=== PATIENT | male | born 1955 | race Caucasian/White ===

== ENCOUNTER 2019-08-21 16:49 | Inpatient (IN) ==
[2019-08-21 17:58] LABS: ABS Basophils 0.1 10^3/ul (0-0.2); ABS Eosinophils 0.2 10^3/ul (0-0.6); ABS Lymphocytes 1.3 10^3/ul (1.0-4.8); ABS Monocytes 0.6 10^3/ul (0-0.8); ABS Neutrophils 6.2 10^3/ul (1.5-7.7); Eosinophil % 1.9 %; Hematocrit 41 % (42-52); Hemoglobin 13.6 g/dL (14.0-18.0); Lymphocyte % 15.4 %; Mean Corpuscular HGB Conc 34 g/dL (31-36); Mean Corpuscular Hemoglobin 27 pg (27-31); Mean Corpuscular Volume 82 fL (80-94); Mean Platelet Volume 8.9 fL (7.4-10.4); Platelet Count 239 10^3/uL (150-450); Red Blood Count 4.96 10^6 /uL (4.18-5.48); Red Cell Distribution Width 15 % (10-15); White Blood Count 8.3 10^3/uL (3.5-10.8)
[2019-08-21 18:14] LABS: ALT 20 U/L (7-52); AST 59 U/L (13-39); Albumin 4.4 g/dL (3.2-5.2); Albumin/Globulin Ratio 1.6 (1-3); Alkaline Phosphatase 73 U/L (34-104); Anion Gap 8 mmol/L (2-11); BUN/Creatinine Ratio 18.8 (8-20); Blood Urea Nitrogen 24 mg/dL (6-24); CO2 Carbon Dioxide 28 mmol/L (22-32); Calcium 9.8 mg/dL (8.6-10.3); Chloride 102 mmol/L (101-111); EGFR African American 68.2 (>60); EGFR Non-African American 56.4 (>60); Globulin 2.8 g/dL (2-4); Glucose 111 mg/dL (70-100); Magnesium 2.1 mg/dL (1.9-2.7); Potassium 3.4 mmol/L (3.5-5.0); Sodium 138 mmol/L (135-145); Total Protein 7.2 g/dL (6.4-8.9)
[2019-08-21 18:17] LABS: Troponin I 0.05 ng/mL (<0.03)
[2019-08-21 19:20] LABS: Activated Partial Thrombo Time 29.7 seconds (26.0-38.0); INR 1.17 (0.82-1.09)
[2019-08-21] MEDS ORDERED: Ondansetron 4 mg VIAL 2 MG/ML 2 ml VIAL IV PRN (19:59)
[2019-08-21] MEDS ORDERED: KCL 20 MEQ/100 ML IVPREMIX 20 MEQ/100 ML BAG IV ONE (20:07)
[2019-08-21] MEDS ORDERED: Iodixanol (CONTRAST) 320 MG/ML 100 ML SDV IV ONE (20:29)
[2019-08-21] MEDS ORDERED: Thiamine 100 MG/ML 2 ml VIAL (200 mg) IM ONE (20:30)
[2019-08-21] MEDS ORDERED: LORazepam 2 mg VIAL 1 ml IV PUSH SCH (21:00)
[2019-08-21 21:29] LABS: Troponin I 0.06 ng/mL (<0.03)
[2019-08-21] MEDS: NS 0.9% 1000 ml BAG 1,000 ML IV SCH (22:31)
[2019-08-21] MEDS: Enoxaparin 40 MG/0.4 ML SYR SUBCUT SCH (22:32)
[2019-08-21] MEDS: Pantoprazole VIAL 40 MG VIAL IV SCH (22:32)
[2019-08-22 00:37] LABS: Troponin I 0.06 ng/mL (<0.03)
[2019-08-22 03:31] LABS: BUN/Creatinine Ratio 20.7 (8-20); EGFR African American 76.5 (>60); EGFR Non-African American 63.2 (>60); Potassium 3.7 mmol/L (3.5-5.0)
[2019-08-22 03:57] LABS: Troponin I 0.06 ng/mL (<0.03)
[2019-08-22] MEDS: NS 0.9% 1000 ml BAG 1,000 ML IV SCH ×2 (08:23→22:34)
[2019-08-22] MEDS: Pantoprazole VIAL 40 MG VIAL IV SCH ×2 (08:24→21:45)
[2019-08-22] MEDS ORDERED: Pneumococcal Vac 23-Polyvalent IM ONE (09:00)
[2019-08-22] MEDS ORDERED: fentaNYL 100 mcg/2 ml 50 MCG/ML VIAL ONE (15:09)
[2019-08-22] MEDS ORDERED: Midazolam 10 mg/10 ml VIAL 1 mg/ml 10 ml VIAL (10 mg) ONE (15:09)
[2019-08-22] MEDS ORDERED: Iohexol 300 (CONTRAST) 10 ML SDV IV ONE (20:42)
[2019-08-22] MEDS: Enoxaparin 40 MG/0.4 ML SYR SUBCUT SCH (21:45)
[2019-08-23] MEDS: NS 0.9% 1000 ml BAG 1,000 ML IV SCH ×2 (01:20→22:05)
[2019-08-23] MEDS: Pantoprazole VIAL 40 MG VIAL IV SCH ×2 (08:03→20:55)
[2019-08-23] MEDS ORDERED: Magnesium Hydroxide LIQ 30 ML UDC PO PRN (08:32)
[2019-08-23] MEDS ORDERED: Polyethylene Glycol 3350 17 GM PACKET PO PRN (08:32)
[2019-08-23] MEDS ORDERED: Magnesium Hydroxide LIQ 30 ML UDC PO SCH (09:00)
[2019-08-23] MEDS ORDERED: HYDROcodone/ACET. 7.5/325 LIQ 15 ML UDC PO ONE (19:18)
[2019-08-24] MEDS ORDERED: Bupivacaine 0.25% SDV PF 10 ML VIAL INJ ONE ×3 (07:39→08:58)
[2019-08-24] MEDS ORDERED: fentaNYL 250 mcg/5 ml 50 MCG/ML 5 ml VIAL (250 MCG) ONE (07:40)
[2019-08-24] MEDS ORDERED: Midazolam 2 mg/2 ml VIAL 1 mg/ml 2 ml VIAL (2 mg) ONE (07:40)
[2019-08-24] MEDS ORDERED: fentaNYL 100 mcg/2 ml 50 MCG/ML VIAL ONE (07:41)
[2019-08-24] MEDS ORDERED: Flumazenil 0.5 mg/5 ml 0.1 MG/ML 5 ml VIAL ONE (07:41)
[2019-08-24] MEDS ORDERED: Naloxone 0.4 mg VIAL 0.4 mg/ml 1 ml VIAL ONE (07:41)
[2019-08-24] MEDS ORDERED: ceFAZolin 1 GM* X ONE DOSE (AddVan) IVPB (08:00)
[2019-08-24] MEDS ORDERED: Lidocaine 2% JELLY 6 ML TOPICAL ONE (08:13)
[2019-08-24] MEDS ORDERED: Ondansetron 4 mg VIAL 2 MG/ML 2 ml VIAL IV PRN (10:14)
[2019-08-24] MEDS: Pantoprazole VIAL 40 MG VIAL IV SCH ×2 (10:22→20:48)
[2019-08-24] MEDS ORDERED: oxyCODONE/Acetamin 5/325 mg TAB PO PRN (14:53)
[2019-08-25 06:21] LABS: BUN/Creatinine Ratio 14.4 (8-20); Calcium 8.8 mg/dL (8.6-10.3); EGFR African American 86.7 (>60); EGFR Non-African American 71.7 (>60); Magnesium 2.1 mg/dL (1.9-2.7)
[2019-08-25 06:29] LABS: ABS Eosinophils 0.3 10^3/ul (0-0.6); ABS Lymphocytes 1.5 10^3/ul (1.0-4.8); ABS Monocytes 0.8 10^3/ul (0-0.8); ABS Neutrophils 6.1 10^3/ul (1.5-7.7); Eosinophil % 3.3 %; Hematocrit 39 % (42-52); Lymphocyte % 17.4 %; Mean Corpuscular HGB Conc 33 g/dL (31-36); Mean Corpuscular Hemoglobin 28 pg (27-31); Mean Corpuscular Volume 82 fL (80-94); Nucleated Red Blood Cells % 0.1; Red Blood Count 4.74 10^6 /uL (4.18-5.48); Red Cell Distribution Width 15 % (10-15); White Blood Count 8.8 10^3/uL (3.5-10.8)
[2019-08-25 09:04] LABS: Mean Platelet Volume 9.9 fL (7.4-10.4); Platelet Count 164 10^3/uL (150-450)
[2019-08-25] MEDS: Pantoprazole VIAL 40 MG VIAL IV SCH (10:01)
[2019-08-25] MEDS ORDERED: Enoxaparin 40 MG/0.4 ML SYR SUBCUT SCH (14:00)
[2019-08-25 15:18] VITALS: BP 123/66
== END 2019-08-25 16:45 | disposition home or self-care (01) | DRG 376 ==
LOC: ED 16:49 → MEDTELE 16:49
PROVIDERS: ADMIT Nurse Practitioner Adult Health; ATTEND Internal Medicine

== ENCOUNTER 2020-01-05 08:07 | Inpatient (IN) ==
[2020-01-05 08:55] LABS: ABS Basophils 0.1 10^3/ul (0-0.2); ABS Eosinophils 0.4 10^3/ul (0-0.6); ABS Lymphocytes 0.3 10^3/ul (1.0-4.8); ABS Monocytes 1.1 10^3/ul (0-0.8); ABS Neutrophils 6.7 10^3/ul (1.5-7.7); Eosinophil % 4.4 %; Hematocrit 31 % (42-52); Hemoglobin 10.7 g/dL (14.0-18.0); Lymphocyte % 3.7 %; Mean Corpuscular HGB Conc 35 g/dL (31-36); Mean Corpuscular Hemoglobin 31 pg (27-31); Mean Corpuscular Volume 89 fL (80-94); Mean Platelet Volume 7.3 fL (7.4-10.4); Nucleated Red Blood Cells % 0.1; Platelet Count 322 10^3/uL (150-450); Red Blood Count 3.45 10^6 /uL (4.18-5.48); Red Cell Distribution Width 14 % (10-15); White Blood Count 8.5 10^3/uL (3.5-10.8)
[2020-01-05 09:14] LABS: Activated Partial Thrombo Time 28.1 seconds (26.0-38.0); Albumin 3.7 g/dL (3.2-5.2); Albumin/Globulin Ratio 1.2 (1-3); BUN/Creatinine Ratio 23.4 (8-20); C Reactive Protein 133.9 mg/L (<8.01); Calcium 9.2 mg/dL (8.6-10.3); EGFR African American 68.2 (>60); EGFR Non-African American 56.4 (>60); Globulin 3.2 g/dL (2-4); INR 1.29 (0.82-1.09); Potassium 3.9 mmol/L (3.5-5.0); Total Bilirubin 0.5 mg/dL (0.2-1.0); Total Protein 6.9 g/dL (6.4-8.9)
[2020-01-05 09:16] LABS: Troponin I 0.02 ng/mL (<0.03)
[2020-01-05 09:18] LABS: CKMB ng/mL 0.8 ng/mL (0.6-6.3)
[2020-01-05 09:49] LABS: Influenza A Molecular Negative (Negative); Influenza B Molecular Negative (Negative)
[2020-01-05] MEDS ORDERED: Iodixanol (CONTRAST) 320 MG/ML 100 ML SDV IV ONE (11:47)
[2020-01-05] MEDS ORDERED: Dexamethasone IV 4 MG/ML VIAL 1 ml VIAL IV SLOW PU ONE (12:42)
[2020-01-05] MEDS ORDERED: cefTRIAXone 2 GM ADDV.VIAL ONE (14:46)
[2020-01-05] MEDS: NS 0.9% 1000 ml BAG 1,000 ML IV SCH ×2 (14:53→16:56)
[2020-01-05] MEDS: cefTRIAXone 2 GM ADDV.VIAL 2 GM in NS 0.9% 100 ml BAG 100 ML IV SCH (14:54)
[2020-01-05] MEDS: Enoxaparin 40 MG/0.4 ML SYR SUBCUT SCH (17:16)
[2020-01-05 22:22] LABS: Urine Appearance Clear; Urine Bilirubin Negative (Negative); Urine Blood Negative (Negative); Urine Color Yellow; Urine Glucose Negative (Negative); Urine Ketones Negative (Negative); Urine Nitrite Negative (Negative); Urine Protein Negative (Negative); Urine Specific Gravity 1.025 (1.010-1.030); Urine Urobilinogen Negative (Negative)
[2020-01-06] MEDS: Ondansetron 4 mg VIAL 2 MG/ML 2 ml VIAL IV PRN ×2 (01:14→19:24)
[2020-01-06] MEDS: NS 0.9% 1000 ml BAG 1,000 ML IV SCH (03:48)
[2020-01-06 06:50] LABS: Hematocrit 29 % (42-52); Hemoglobin 10.2 g/dL (14.0-18.0); Mean Corpuscular HGB Conc 36 g/dL (31-36); Mean Corpuscular Hemoglobin 32 pg (27-31); Mean Corpuscular Volume 89 fL (80-94); Mean Platelet Volume 7.2 fL (7.4-10.4); Platelet Count 308 10^3/uL (150-450); Red Blood Count 3.21 10^6 /uL (4.18-5.48); Red Cell Distribution Width 14 % (10-15); White Blood Count 7.4 10^3/uL (3.5-10.8)
[2020-01-06 07:10] LABS: Albumin 3.4 g/dL (3.2-5.2); Albumin/Globulin Ratio 1.2 (1-3); BUN/Creatinine Ratio 26.7 (8-20); Calcium 8.8 mg/dL (8.6-10.3); EGFR African American 89.7 (>60); EGFR Non-African American 74.1 (>60); Globulin 2.9 g/dL (2-4); Magnesium 2.1 mg/dL (1.9-2.7); Potassium 4.2 mmol/L (3.5-5.0); Total Bilirubin 0.3 mg/dL (0.2-1.0); Total Protein 6.3 g/dL (6.4-8.9)
[2020-01-06] MEDS: cefTRIAXone 2 GM ADDV.VIAL 2 GM in NS 0.9% 100 ml BAG 100 ML IV SCH (15:33)
[2020-01-06] MEDS: Enoxaparin 40 MG/0.4 ML SYR SUBCUT SCH (17:00)
[2020-01-07] MEDS: Ondansetron 4 mg VIAL 2 MG/ML 2 ml VIAL IV PRN ×4 (07:36→21:26)
[2020-01-07] MEDS: cefTRIAXone 2 GM ADDV.VIAL 2 GM in NS 0.9% 100 ml BAG 100 ML IV SCH (15:40)
[2020-01-07] MEDS: Enoxaparin 40 MG/0.4 ML SYR SUBCUT SCH (15:41)
[2020-01-08] MEDS: Senna TAB 8.6 mg TAB PO PRN (07:49)
[2020-01-08 08:21] LABS: ABS Eosinophils 0.4 10^3/ul (0-0.6); ABS Lymphocytes 0.3 10^3/ul (1.0-4.8); ABS Monocytes 0.9 10^3/ul (0-0.8); Eosinophil % 5.5 %; Hematocrit 29 % (42-52); Hemoglobin 10.3 g/dL (14.0-18.0); Lymphocyte % 4.5 %; Mean Corpuscular HGB Conc 36 g/dL (31-36); Mean Corpuscular Hemoglobin 32 pg (27-31); Mean Corpuscular Volume 89 fL (80-94); Mean Platelet Volume 7.1 fL (7.4-10.4); Platelet Count 357 10^3/uL (150-450); Red Blood Count 3.27 10^6 /uL (4.18-5.48); Red Cell Distribution Width 14 % (10-15); White Blood Count 7.7 10^3/uL (3.5-10.8)
[2020-01-08 08:27] LABS: Albumin 3.5 g/dL (3.2-5.2); Albumin/Globulin Ratio 1.1 (1-3); BUN/Creatinine Ratio 19.5 (8-20); C Reactive Protein 118.31 mg/L (<8.01); Calcium 8.8 mg/dL (8.6-10.3); Globulin 3.1 g/dL (2-4); Potassium 3.8 mmol/L (3.5-5.0); Total Bilirubin 0.3 mg/dL (0.2-1.0); Total Protein 6.6 g/dL (6.4-8.9)
[2020-01-08] MEDS: Ondansetron 4 mg VIAL 2 MG/ML 2 ml VIAL IV PRN ×2 (10:11→22:16)
[2020-01-08] MEDS: cefTRIAXone 2 GM ADDV.VIAL 2 GM in NS 0.9% 100 ml BAG 100 ML IV SCH (15:24)
[2020-01-08] MEDS: Enoxaparin 40 MG/0.4 ML SYR SUBCUT SCH (16:34)
[2020-01-09 07:09] VITALS: BP 106/52
[2020-01-09] MEDS: Senna TAB 8.6 mg TAB PO PRN (08:10)
== END 2020-01-09 10:50 | disposition home or self-care (01) | DRG 194 ==
LOC: ED 08:07 → MED 15:29
PROVIDERS: ADMIT Internal Medicine Hematology & Oncology; ATTEND Internal Medicine Hematology & Oncology

== ENCOUNTER 2021-10-04 18:15 | Inpatient (IN) ==
[2021-10-04] MEDS ORDERED: Morphine 4 MG/ML VIAL (1 ml) IV PRN (19:33)
[2021-10-04] MEDS ORDERED: Morphine 4 MG/ML VIAL (1 ml) IV ONE (19:59)
[2021-10-04] MEDS ORDERED: NS 0.9% 1000 ml BAG 1,000 ML IV ONE (20:00)
[2021-10-04] MEDS ORDERED: Ondansetron 4 mg VIAL 2 MG/ML 2 ml VIAL IV ONE (20:52)
[2021-10-04] MEDS: Morphine 4 MG/ML VIAL (1 ml) IV PRN ×2 (21:12→22:44)
[2021-10-04] MEDS ORDERED: Polyethylene Glycol 3350 17 GM PACKET PO ONE (21:24)
[2021-10-04 21:55] LABS: Urine Appearance Clear; Urine Bilirubin Negative (Negative); Urine Color Yellow; Urine Glucose Negative (Negative)
[2021-10-04 21:56] LABS: Urine Blood Negative (Negative); Urine Ketones Negative (Negative); Urine Nitrite Negative (Negative); Urine Protein Negative (Negative); Urine Specific Gravity 1.025 (1.005-1.030); Urine Urobilinogen 0.2 (Negative) (Negative)
[2021-10-04 21:59] LABS: ABS Eosinophils 0.3 10^3/ul (0-0.6); ABS Lymphocytes 0.4 10^3/ul (1.0-4.8); ABS Monocytes 0.7 10^3/ul (0-0.8); ABS Neutrophils 4.6 10^3/ul (1.5-7.7); Hematocrit 32 % (42-52); Hemoglobin 10.7 g/dL (14.0-18.0); Lymphocyte % 7.3 %; Mean Corpuscular HGB Conc 34 g/dL (31-36); Mean Corpuscular Hemoglobin 29 pg (27-31); Mean Corpuscular Volume 86 fL (80-94); Platelet Count 179 10^3/uL (150-450); Red Blood Count 3.68 10^6 /uL (4.18-5.48); Red Cell Distribution Width 14 % (10-15)
[2021-10-04 22:41] LABS: Albumin 4.1 g/dL (3.2-5.2); Albumin/Globulin Ratio 1.6 (1-3); C Reactive Protein 9.65 mg/L (<8.01); Calcium 9.2 mg/dL (8.6-10.3); Globulin 2.6 g/dL (2-4); Magnesium 1.9 mg/dL (1.9-2.7); Potassium 4.3 mmol/L (3.5-5.0); Total Bilirubin 0.4 mg/dL (0.2-1.0); Total Protein 6.7 g/dL (6.4-8.9); eGFR CKD-EPI 58.1 (>60)
[2021-10-04] MEDS ORDERED: Iodixanol (CONTRAST) 320 MG/ML 100 ML SDV IV ONE (22:42)
[2021-10-05] MEDS ORDERED: Al Hydrox/Mg Hydrox/Simet LIQ 30 ML UDC PO ONE (01:19)
[2021-10-05] MEDS ORDERED: Morphine 4 MG/ML VIAL (1 ml) IV ONE (01:19)
[2021-10-05] MEDS ORDERED: Polyethylene Glycol 3350 17 GM PACKET PO PRN (01:47)
[2021-10-05] MEDS: Enoxaparin 40 MG/0.4 ML SYR SUBCUT SCH (06:17)
[2021-10-05] MEDS: Ondansetron 4 mg VIAL 2 MG/ML 2 ml VIAL IV PRN (06:17)
[2021-10-05] MEDS: Magnesium Hydroxide LIQ 30 ML UDC PO PRN ×2 (07:18→20:49)
[2021-10-05] MEDS: CMCS:Omeprazole 20 mg CAP (NF) PO SCH (10:06)
[2021-10-05] MEDS ORDERED: Lactated Ringers 1000 ml BAG 1,000 ML IV ONE (12:09)
[2021-10-05] MEDS: Dexamethasone IV 4 MG/ML VIAL 1 ml VIAL IV SLOW PU SCH ×2 (13:21→20:49)
[2021-10-05] MEDS: Morphine ORAL CONCENTRATE 5 MG/0.25 ML ORAL.SYRIN PO PRN ×2 (13:23→18:13)
[2021-10-06] MEDS: Enoxaparin 40 MG/0.4 ML SYR SUBCUT SCH (05:34)
[2021-10-06 05:46] LABS: ABS Lymphocytes 0.4 10^3/ul (1.0-4.8); ABS Monocytes 0.5 10^3/ul (0-0.8); ABS Neutrophils 4.6 10^3/ul (1.5-7.7); Eosinophil % 0.3 %; Hematocrit 30 % (42-52); Hemoglobin 10.4 g/dL (14.0-18.0); Lymphocyte % 7.3 %; Mean Corpuscular HGB Conc 34 g/dL (31-36); Mean Corpuscular Hemoglobin 29 pg (27-31); Mean Corpuscular Volume 85 fL (80-94); Mean Platelet Volume 8.3 fL (7.4-10.4); Platelet Count 172 10^3/uL (150-450); Red Blood Count 3.55 10^6 /uL (4.18-5.48); Red Cell Distribution Width 14 % (10-15); White Blood Count 5.5 10^3/uL (3.5-10.8)
[2021-10-06 05:56] LABS: Calcium 9.5 mg/dL (8.6-10.3); Potassium 4.2 mmol/L (3.5-5.0)
[2021-10-06 06:01] LABS: C Reactive Protein 12.47 mg/L (<8.01)
[2021-10-06] MEDS ORDERED: Lactated Ringers 1000 ml BAG 1,000 ML IV ONE (07:36)
[2021-10-06] MEDS: Dexamethasone IV 4 MG/ML VIAL 1 ml VIAL IV SLOW PU SCH ×2 (08:42→20:42)
[2021-10-06] MEDS: CMCS:Omeprazole 20 mg CAP (NF) PO SCH (08:42)
[2021-10-06 13:13] LABS: Ferritin 67.3 ng/mL (24-336)
[2021-10-06] MEDS ORDERED: Gadoteridol (CONTRAST) 279.3 MG/ML 10 ML IV ONE (14:33)
[2021-10-06] MEDS: Morphine ORAL CONCENTRATE 5 MG/0.25 ML ORAL.SYRIN PO PRN ×2 (18:57→23:57)
[2021-10-07] MEDS: Al Hydrox/Mg Hydrox/Simet LIQ 30 ML UDC PO PRN ×2 (05:30→18:43)
[2021-10-07] MEDS: Morphine ORAL CONCENTRATE 5 MG/0.25 ML ORAL.SYRIN PO PRN ×3 (05:30→15:30)
[2021-10-07] MEDS: Enoxaparin 40 MG/0.4 ML SYR SUBCUT SCH (05:31)
[2021-10-07] MEDS ORDERED: Dexamethasone IV 4 MG/ML VIAL 1 ml VIAL ONE (10:09)
[2021-10-07] MEDS: Senna TAB 8.6 mg TAB PO SCH ×2 (10:11→20:34)
[2021-10-07] MEDS: CMCS:Omeprazole 20 mg CAP (NF) PO SCH (10:13)
[2021-10-07] MEDS: Magnesium Hydroxide LIQ 30 ML UDC PO PRN ×3 (10:13→20:35)
[2021-10-07] MEDS: Dexamethasone IV 4 MG/ML VIAL 1 ml VIAL IV SLOW PU SCH (10:45)
[2021-10-08] MEDS: Al Hydrox/Mg Hydrox/Simet LIQ 30 ML UDC PO PRN ×2 (04:24→22:47)
[2021-10-08 04:31] LABS: ABS Eosinophils 0.1 10^3/ul (0-0.6); ABS Lymphocytes 0.4 10^3/ul (1.0-4.8); ABS Monocytes 0.9 10^3/ul (0-0.8); ABS Neutrophils 6.5 10^3/ul (1.5-7.7); Eosinophil % 1.7 %; Hematocrit 32 % (42-52); Lymphocyte % 4.6 %; Mean Corpuscular HGB Conc 34 g/dL (31-36); Mean Corpuscular Hemoglobin 29 pg (27-31); Mean Corpuscular Volume 85 fL (80-94); Mean Platelet Volume 8.2 fL (7.4-10.4); Platelet Count 172 10^3/uL (150-450); Red Blood Count 3.79 10^6 /uL (4.18-5.48); Red Cell Distribution Width 14 % (10-15)
[2021-10-08 04:52] LABS: C Reactive Protein 6.96 mg/L (<8.01); Calcium 9.2 mg/dL (8.6-10.3); Potassium 3.8 mmol/L (3.5-5.0); eGFR CKD-EPI 67.6 (>60)
[2021-10-08] MEDS: Enoxaparin 40 MG/0.4 ML SYR SUBCUT SCH (05:14)
[2021-10-08] MEDS: Senna TAB 8.6 mg TAB PO SCH ×2 (07:32→20:06)
[2021-10-08] MEDS: CMCS:Omeprazole 20 mg CAP (NF) PO SCH (07:51)
[2021-10-08] MEDS: Dexamethasone IV 4 MG/ML VIAL 1 ml VIAL IV SLOW PU SCH (07:52)
[2021-10-08] MEDS: Morphine ORAL CONCENTRATE 5 MG/0.25 ML ORAL.SYRIN PO PRN ×3 (07:52→18:38)
[2021-10-08] MEDS ORDERED: fentaNYL PATCH 12 MCG/HR 1 PATCH TRANSDERM SCH (18:00)
[2021-10-08] MEDS: fentaNYL Patch Check Q Shift NOTE FOLLOW UP SCH (19:27)
[2021-10-09] MEDS: Morphine ORAL CONCENTRATE 5 MG/0.25 ML ORAL.SYRIN PO PRN ×4 (01:30→21:00)
[2021-10-09] MEDS: Enoxaparin 40 MG/0.4 ML SYR SUBCUT SCH (06:41)
[2021-10-09] MEDS: fentaNYL Patch Check Q Shift NOTE FOLLOW UP SCH ×2 (07:02→19:26)
[2021-10-09] MEDS: CMCS:Omeprazole 20 mg CAP (NF) PO SCH (08:03)
[2021-10-09] MEDS: Senna TAB 8.6 mg TAB PO SCH (08:04)
[2021-10-09] MEDS: Dexamethasone IV 4 MG/ML VIAL 1 ml VIAL IV SLOW PU SCH (08:04)
[2021-10-09] MEDS ORDERED: Senna TAB 8.6 mg TAB PO PRN (09:56)
[2021-10-09] MEDS: Ondansetron 4 mg VIAL 2 MG/ML 2 ml VIAL IV PRN (16:59)
[2021-10-10] MEDS: Morphine ORAL CONCENTRATE 5 MG/0.25 ML ORAL.SYRIN PO PRN ×4 (01:03→21:36)
[2021-10-10] MEDS: Al Hydrox/Mg Hydrox/Simet LIQ 30 ML UDC PO PRN (01:06)
[2021-10-10] MEDS: Ondansetron 4 mg VIAL 2 MG/ML 2 ml VIAL IV PRN ×2 (02:59→23:00)
[2021-10-10] MEDS: Enoxaparin 40 MG/0.4 ML SYR SUBCUT SCH (05:00)
[2021-10-10] MEDS: fentaNYL Patch Check Q Shift NOTE FOLLOW UP SCH ×2 (07:03→19:42)
[2021-10-10] MEDS: CMCS:Omeprazole 20 mg CAP (NF) PO SCH (07:54)
[2021-10-10] MEDS: Dexamethasone IV 4 MG/ML VIAL 1 ml VIAL IV SLOW PU SCH (07:59)
[2021-10-10] MEDS ORDERED: fentaNYL PATCH 25 MCG/HR 1 PATCH TRANSDERM SCH ×2 (18:00→20:00)
[2021-10-11] MEDS: Morphine ORAL CONCENTRATE 5 MG/0.25 ML ORAL.SYRIN PO PRN ×7 (00:01→23:20)
[2021-10-11 06:49] LABS: ABS Eosinophils 0.2 10^3/ul (0-0.6); ABS Lymphocytes 0.5 10^3/ul (1.0-4.8); ABS Monocytes 0.8 10^3/ul (0-0.8); Eosinophil % 2.6 %; Hematocrit 32 % (42-52); Hemoglobin 11.1 g/dL (14.0-18.0); Lymphocyte % 6.3 %; Mean Corpuscular HGB Conc 34 g/dL (31-36); Mean Corpuscular Hemoglobin 30 pg (27-31); Mean Corpuscular Volume 86 fL (80-94); Nucleated Red Blood Cells % 0.1; Platelet Count 168 10^3/uL (150-450); Red Blood Count 3.76 10^6 /uL (4.18-5.48); Red Cell Distribution Width 14 % (10-15); White Blood Count 7.5 10^3/uL (3.5-10.8)
[2021-10-11] MEDS: Enoxaparin 40 MG/0.4 ML SYR SUBCUT SCH (06:49)
[2021-10-11 07:32] LABS: Calcium 8.9 mg/dL (8.6-10.3); Potassium 4.1 mmol/L (3.5-5.0); eGFR CKD-EPI 63.7 (>60)
[2021-10-11] MEDS: fentaNYL Patch Check Q Shift NOTE FOLLOW UP SCH ×2 (07:36→19:03)
[2021-10-11] MEDS: CMCS:Omeprazole 20 mg CAP (NF) PO SCH (07:56)
[2021-10-11] MEDS: Ondansetron 4 mg VIAL 2 MG/ML 2 ml VIAL IV PRN (07:56)
[2021-10-11] MEDS: Dexamethasone IV 4 MG/ML VIAL 1 ml VIAL IV SLOW PU SCH (07:56)
[2021-10-12] MEDS: Morphine ORAL CONCENTRATE 5 MG/0.25 ML ORAL.SYRIN PO PRN ×5 (03:48→20:16)
[2021-10-12] MEDS: Enoxaparin 40 MG/0.4 ML SYR SUBCUT SCH (06:46)
[2021-10-12] MEDS: fentaNYL Patch Check Q Shift NOTE FOLLOW UP SCH ×2 (07:11→18:54)
[2021-10-12] MEDS: Dexamethasone IV 4 MG/ML VIAL 1 ml VIAL IV SLOW PU SCH (08:57)
[2021-10-12] MEDS: CMCS:Omeprazole 20 mg CAP (NF) PO SCH (08:59)
[2021-10-13] MEDS: Morphine ORAL CONCENTRATE 5 MG/0.25 ML ORAL.SYRIN PO PRN ×4 (00:03→07:50)
[2021-10-13] MEDS: Enoxaparin 40 MG/0.4 ML SYR SUBCUT SCH (05:11)
[2021-10-13] MEDS: fentaNYL Patch Check Q Shift NOTE FOLLOW UP SCH (07:20)
[2021-10-13] MEDS: Dexamethasone IV 4 MG/ML VIAL 1 ml VIAL IV SLOW PU SCH (07:50)
[2021-10-13] MEDS: Ondansetron 4 mg VIAL 2 MG/ML 2 ml VIAL IV PRN (07:50)
[2021-10-13] MEDS: CMCS:Omeprazole 20 mg CAP (NF) PO SCH (07:51)
[2021-10-13 11:12] VITALS: BP 112/63
[2021-10-13] MEDS ORDERED: fentaNYL PATCH 50 MCG/HR 1 PATCH TRANSDERM SCH (14:00)
== END 2021-10-13 15:30 | disposition home health service (06) | DRG 948 ==
LOC: ED 18:15 → EDHOLD 18:15 → SUATTDRO 10-05 01:37 → SSU 10-05 05:04 → SUATTDRO 10-05 14:39
PROVIDERS: ADMIT Internal Medicine; ATTEND Internal Medicine